=== PATIENT | male | born 1945 | race Caucasian/White ===

== ENCOUNTER 2016-10-27 05:26 | Day surgery (SDC) | payer MEDICARE, BC ==
--- NOTE | ~2016-10-27 | EGD ---
EGD REPORT [facility] [address] [address] NAME: MIKI BELTRAN : [birth year] [place] [facility] [place] [id number] AGE: 71 ADM/REG DATE : 10/27/16 MR#: [id number] REPORT SERV DATE: 10/27/16 DICTATED BY: DATE: REPORT STATUS : Draft TRANSCRIBED BY: [facility] DATE: 10/27/16 Endoscopy Center Patient Name: Miki Beltran Date of : 1945 Attending MD: CHRISTELLE ALVARADO MD Procedure Date No Time: 10/27/2016 Procedure: Upper GI endoscopy Indications: Dysphagia, Family history of gastric cancer, anastomotic stricture Referring MD: JUSTINA LA Medicines: Monitored Anesthesia Care Complications: No immediate complications. Procedure: Pre-Anesthesia Assessment: - ASA Grade Assessment: III - A patient with severe systemic disease. After obtaining informed consent, the endoscope was passed under direct vision. Throughout the procedure, the patient's blood pressure, pulse, and oxygen saturations were monitored continuously. The GIF H190 [id number] was introduced through the mouth, and advanced to the jejunum. The upper GI endoscopy was accomplished without difficulty. The patient tolerated the procedure well. Findings: A benign-appearing, intrinsic moderate stenosis measuring less than one cm (in length) x 7 mm (inner diameter) was found at the esophageal anastomosis and was traversed after dilation. A TTS dilator was passed through the scope. Dilation with a 10-11-12 mm balloon (to a maximum balloon size of 12 mm) dilator was performed. Estimated blood loss was minimal. The examined jejunum was normal. Impression: - Benign-appearing esophageal stricture. Dilated. - Normal examined jejunum. Recommendation: - Patient has a contact number available for emergencies. The signs and symptoms of potential delayed complications were discussed with the patient. Return to normal activities tomorrow. Written discharge instructions were provided to the patient. - Soft diet. - Discharge patient to home. - Continue present medications. - Repeat the upper endoscopy in 2 weeks for retreatment. EGD REPORT [facility] [address] [address] NAME: MIKI BELTRAN : [birth year] STATUS : REG [facility]#: [id number] AGE: 71 ADM/REG DATE : 10/27/16 MR#: [id number] REPORT SERV DATE: 10/27/16 DICTATED BY: DATE: REPORT STATUS : Draft TRANSCRIBED BY: [employer] DATE: 10/27/16 Plan injection with triamcinilone (Kenalog) at that time. Procedure Code(s): --- Professional --- 74480, Esophagogastroduodenoscopy, flexible, transoral; with transendoscopic balloon dilation of esophagus (less than 30 mm diameter) Diagnosis Code(s): --- Professional --- K22.2, Esophageal obstruction R13.10, Dysphagia, unspecified Z80.0, Family history of malignant neoplasm of digestive organs CPT copyright 2013 [employer]. All rights reserved. The codes documented in this report are preliminary and upon pre coder review may be revised to meet current compliance requirements. CHRISTELLE ALVARADO MD 10/27/2016 12:35 PM This report has been signed electronically. Number of Addenda: 0 Note Initiated On: 10/27/2016 6:57 AM Scope Withdrawal Time 0 hours 0 minutes 0 seconds [address] [facility] [address] [id number]
[~2016-10-27 05:26] MED LIST: *DENIES; ASAB PO; IRON325 MG PO; LIPITOR40 PO; ORAZINC110 MG PO; PROTONIX PO; ZOCOR40 PO; ZOCOR5 MG PO
[2016-12-24] MEDS ORDERED: LIPITOR20 PO (08:26)
== END 2016-10-27 23:59 | disposition home or self-care (01) ==
LOC: DMU 05:26
PROVIDERS: Internal Medicine Gastroenterology
PROC: 0D758ZZ Dilation of Esophagus, Via Natural or Artificial Opening Endoscopic (ICD-10-PCS; principal; 2016-10-27 07:00)
DX: K22.2 Esophageal obstruction (principal); B15.9 Hepatitis A without hepatic coma; H91.90 Unspecified hearing loss, unspecified ear; E78.00 Pure hypercholesterolemia, unspecified; N40.0 Benign prostatic hyperplasia without lower urinary tract symptoms; D64.9 Anemia, unspecified; Z79.82 Long term (current) use of aspirin; Z79.899 Other long term (current) drug therapy; Z98.890 Other specified postprocedural states; Z80.0 Family history of malignant neoplasm of digestive organs; Z90.49 Acquired absence of other specified parts of digestive tract; Z86.010 Personal history of colon polyps; Z98.41 Cataract extraction status, right eye; Z98.42 Cataract extraction status, left eye
CPT/HCPCS: A9270-GY; J2370

== ENCOUNTER 2016-11-10 06:13 | Day surgery (SDC) | payer MEDICARE, BC ==
--- NOTE | ~2016-11-10 | EGD ---
EGD REPORT [facility] [address] [address] NAME: MIKI BELTRAN : [birth year] STATUS : REG [facility]#: [id number] AGE: 71 ADM/REG DATE : 11/10/16 MR#: [id number] REPORT SERV DATE: 11/10/16 DICTATED BY: DATE: REPORT STATUS : Draft TRANSCRIBED BY: [facility] DATE: 11/10/16 Endoscopy Center Patient Name: Miki Beltran Date of : 1945 Attending MD: CHRISTELLE ALVARADO MD Procedure Date No Time: 11/10/2016 Procedure: Upper GI endoscopy Indications: Follow-up of post-surgical anastomotic stenosis, For therapy of post-surgical anastomotic stenosis, Management of operative complication: Dilation of anastomotic stricture Referring MD: JUSTINA LA Medicines: Monitored Anesthesia Care Complications: No immediate complications. Procedure: Pre-Anesthesia Assessment: - ASA Grade Assessment: II - A patient with mild systemic disease. After obtaining informed consent, the endoscope was passed under direct vision. Throughout the procedure, the patient's blood pressure, pulse, and oxygen saturations were monitored continuously. The GIF H190 [id number] was introduced through the mouth, and advanced to the jejunum. The upper GI endoscopy was accomplished without difficulty. The patient tolerated the procedure well. Findings: A benign-appearing, intrinsic moderate stenosis measuring less than one cm (in length) x 9 mm (inner diameter) was found at the esophageal anastomosis and was traversed after dilation. A TTS dilator was passed through the scope. Dilation with a 10-11-12 mm x 5.5 cm CRE balloon (to a maximum balloon size of 12 mm) dilator was performed under fluoroscopic guidance. No resistance was encountered at 10 mm. The balloon was inflated to 12 mm per psi and held for one minute. Two areas at 9 o'clock and (especially) 3 o'clock were notable for visible torn fibers but no evidence of perforation. Area was successfully injected with 1 mL of triamcinolone (40 mg/mL) for drug delivery with delivery in each of four quadrants (40mg/mL mixed 1:1 with sterile saline then 0.5 cc in each quadrant). The examined jejunum was normal. Impression: - Benign-appearing esophageal stricture. Dilated. Injected. - Normal examined jejunum. EGD REPORT [address] [place]. [address] NAME: MIKI BELTRAN : [birth year] STATUS : REG [facility] [place] PAT#: [id number] AGE: 71 ADM/REG DATE : 11/10/16 MR#: [id number] REPORT SERV DATE: 11/10/16 DICTATED BY: DATE: REPORT STATUS : Draft TRANSCRIBED BY: [employer] DATE: 11/10/16 Recommendation: - Patient has a contact number available for emergencies. The signs and symptoms of potential delayed complications were discussed with the patient. Return to normal activities tomorrow. Written discharge instructions were provided to the patient. - Regular diet. - Continue present medications. - Repeat the upper endoscopy in 3 weeks for retreatment. Procedure Code(s): --- Professional --- 74584, Esophagogastroduodenoscopy, flexible, transoral; with transendoscopic balloon dilation of esophagus (less than 30 mm diameter) 85269, 59, Esophagogastroduodenoscopy, flexible, transoral; with directed submucosal injection(s), any substance 98651, Intraluminal dilation of strictures and/or obstructions (eg, esophagus), radiological supervision and interpretation Diagnosis Code(s): --- Professional --- K22.2, Esophageal obstruction K91.89, Other postprocedural complications and disorders of digestive system CPT copyright 2013 [employer]. All rights reserved. The codes documented in this report are preliminary and upon jukebox coin collector review may be revised to meet current compliance requirements. CHRISTELLE ALVARADO MD 11/10/2016 8:22 AM This report has been signed electronically. Number of Addenda: 0 Note Initiated On: 11/10/2016 7:52 AM Scope Withdrawal Time 0 hours 0 minutes 0 seconds [address] [address]
[2016-12-24] MEDS ORDERED: LIPITOR20 PO (08:26)
== END 2016-11-10 23:59 | disposition home or self-care (01) ==
LOC: DMU 06:13
PROVIDERS: Internal Medicine Gastroenterology
PROC: 0D758ZZ Dilation of Esophagus, Via Natural or Artificial Opening Endoscopic (ICD-10-PCS; principal; 2016-11-10 10:30)
PROC: 3E0G8GC Introduction of Other Therapeutic Substance into Upper GI, Via Natural or Artificial Opening Endoscopic (ICD-10-PCS; 2016-11-10 10:30)
DX: K22.2 Esophageal obstruction (principal); I73.9 Peripheral vascular disease, unspecified; E78.00 Pure hypercholesterolemia, unspecified; N40.0 Benign prostatic hyperplasia without lower urinary tract symptoms; D64.9 Anemia, unspecified; Z90.3 Acquired absence of stomach [part of]; Z98.890 Other specified postprocedural states
CPT/HCPCS: 76000; C1725; J3301

== ENCOUNTER 2016-12-01 09:09 | Day surgery (SDC) | payer MEDICARE, BC ==
--- NOTE | ~2016-12-01 | EGD ---
EGD REPORT [facility] [address] [address] NAME: MIKI BELTRAN : [birth year] STATUS : REG [facility]#: [id number] AGE: 71 ADM/REG DATE : 12/01/16 MR#: [id number] REPORT SERV DATE: 12/01/16 DICTATED BY: DATE: REPORT STATUS : Draft TRANSCRIBED BY: [facility] DATE: 12/01/16 Endoscopy Center Patient Name: Miki Beltran Date of : 1945 Attending MD: CHRISTELLE ALVARADO MD Procedure Date No Time: 12/01/2016 Procedure: Upper GI endoscopy Indications: Dysphagia, Management of operative complication: Dilation of anastomotic stricture Referring MD: JUSTINA LA Medicines: Monitored Anesthesia Care Complications: No immediate complications. Procedure: Pre-Anesthesia Assessment: - ASA Grade Assessment: III - A patient with severe systemic disease. After obtaining informed consent, the endoscope was passed under direct vision. Throughout the procedure, the patient's blood pressure, pulse, and oxygen saturations were monitored continuously. The GIF H190 [id number] was introduced through the mouth, and advanced to the jejunum. The upper GI endoscopy was accomplished without difficulty. The patient tolerated the procedure well. Findings: A benign-appearing, intrinsic moderate stenosis measuring less than one cm (in length) x 9 mm (inner diameter) was found at the esophageal anastomosis and was traversed. A TTS dilator was passed through the scope. Dilation with a 12-13.5-15 mm x 5.5 cm CRE balloon (to a maximum balloon size of 13.5 mm) dilator was performed. No other significant abnormalities were identified in a careful examination of the esophagus. There is no endoscopic evidence of inflammation, ulcerations, mass or nodules in the entire esophagus. The examined jejunum was normal. Impression: - Benign-appearing esophageal stricture. Dilated. - Normal examined jejunum. Recommendation: - Patient has a contact number available for emergencies. The signs and symptoms of potential delayed complications were discussed with the patient. Return to normal activities tomorrow. Written discharge instructions were provided to the patient. - Return to previous diet. EGD REPORT [address] [address] NAME: MIKI BELTRAN : [birth year] STATUS : REG [facility] [place] PAT#: [id number] AGE: 71 ADM/REG DATE : 12/01/16 MR#: [id number] REPORT SERV DATE: 12/01/16 DICTATED BY: DATE: REPORT STATUS : Draft TRANSCRIBED BY: [employer] SERVICES DATE: 12/01/16 - Discharge patient to home. - Continue present medications. - Repeat the upper endoscopy in 4 weeks for retreatment. Procedure Code(s): --- Professional --- 65238, Esophagogastroduodenoscopy, flexible, transoral; with transendoscopic balloon dilation of esophagus (less than 30 mm diameter) Diagnosis Code(s): --- Professional --- K22.2, Esophageal obstruction R13.10, Dysphagia, unspecified K91.89, Other postprocedural complications and disorders of digestive system CPT copyright 2013 [employer]. All rights reserved. The codes documented in this report are preliminary and upon data analytics specialist review may be revised to meet current compliance requirements. CHRISTELLE ALVARADO MD 12/01/2016 10:50 AM This report has been signed electronically. Number of Addenda: 0 Note Initiated On: 12/01/2016 10:26 AM Scope Withdrawal Time 0 hours 0 minutes 0 seconds [address] [place] [address]
[2016-12-24] MEDS ORDERED: LIPITOR20 PO (08:26)
== END 2016-12-01 23:59 | disposition home or self-care (01) ==
LOC: DMU 09:09
PROVIDERS: Internal Medicine Gastroenterology
PROC: 0D758ZZ Dilation of Esophagus, Via Natural or Artificial Opening Endoscopic (ICD-10-PCS; principal; 2016-12-01 11:00)
DX: K22.2 Esophageal obstruction (principal); K91.89 Other postprocedural complications and disorders of digestive system; E78.5 Hyperlipidemia, unspecified; D64.9 Anemia, unspecified; E78.00 Pure hypercholesterolemia, unspecified; Z86.19 Personal history of other infectious and parasitic diseases; Z98.890 Other specified postprocedural states
CPT/HCPCS: C1726

== ENCOUNTER 2016-12-29 11:47 | Day surgery (SDC) | payer MEDICARE, BC ==
--- NOTE | ~2016-12-29 | EGD ---
EGD REPORT [facility] [address] [address] NAME: MIKI BELTRAN : [birth year] STATUS : REG [facility]#: [id number] AGE: 71 ADM/REG DATE : 12/29/16 MR#: [id number] REPORT SERV DATE: 12/29/16 DICTATED BY: DATE: REPORT STATUS : Draft TRANSCRIBED BY: [facility] DATE: 12/29/16 Endoscopy Center Patient Name: Miki Beltran Date of : 1945 Attending MD: CHRISTELLE ALVARADO MD Procedure Date No Time: 12/29/2016 Procedure: Upper GI endoscopy Indications: Post-surgical anastomotic stenosis Referring MD: JUSTINA LA Medicines: Monitored Anesthesia Care Complications: No immediate complications. Procedure: Pre-Anesthesia Assessment: - ASA Grade Assessment: II - A patient with mild systemic disease. After obtaining informed consent, the endoscope was passed under direct vision. Throughout the procedure, the patient's blood pressure, pulse, and oxygen saturations were monitored continuously. The GIF H190 [id number] was introduced through the mouth, and advanced to the jejunum. The upper GI endoscopy was accomplished without difficulty. The patient tolerated the procedure well. Findings: A benign-appearing, intrinsic moderate stenosis measuring less than one cm (in length) was found at the esophageal anastomosis and was traversed. A TTS dilator was passed through the scope. Dilation with a 12-13.5-15 mm balloon (to a maximum balloon size of 15 mm) dilator was performed. The examined jejunum was normal. Impression: - Benign-appearing esophageal stricture. Dilated. - Normal examined jejunum. Recommendation: - Patient has a contact number available for emergencies. The signs and symptoms of potential delayed complications were discussed with the patient. Return to normal activities tomorrow. Written discharge instructions were provided to the patient. - Return to previous diet. - Discharge patient to home. - Continue present medications. - Repeat the upper endoscopy in 4 weeks for retreatment. Procedure Code(s): --- Professional --- EGD REPORT [place] [id number] [facility] [place]. [address] NAME: MIKI BELTRAN : [birth year] STATUS : REG [facility]#: [id number] AGE: 71 ADM/REG DATE : 12/29/16 MR#: [id number] REPORT SERV DATE: 12/29/16 DICTATED BY: DATE: REPORT STATUS : Draft TRANSCRIBED BY: [employer] DATE: 12/29/16 65722, Esophagogastroduodenoscopy, flexible, transoral; with transendoscopic balloon dilation of esophagus (less than 30 mm diameter) Diagnosis Code(s): --- Professional --- K22.2, Esophageal obstruction K91.89, Other postprocedural complications and disorders of digestive system CPT copyright 2013 [employer]. All rights reserved. The codes documented in this report are preliminary and upon drum maker review may be revised to meet current compliance requirements. CHRISTELLE ALVARADO MD 12/29/2016 3:55 PM This report has been signed electronically. Number of Addenda: 0 Note Initiated On: 12/29/2016 3:24 PM Scope Withdrawal Time 0 hours 0 minutes 0 seconds
[~2016-12-29 11:47] MED LIST changes: +LIPITOR20 PO
== END 2016-12-29 23:59 | disposition home or self-care (01) ==
LOC: DMU 11:47
PROVIDERS: Internal Medicine Gastroenterology
PROC: 0D758ZZ Dilation of Esophagus, Via Natural or Artificial Opening Endoscopic (ICD-10-PCS; principal; 2016-12-29 16:00)
DX: K91.89 Other postprocedural complications and disorders of digestive system (principal); Z79.82 Long term (current) use of aspirin; Z79.899 Other long term (current) drug therapy; Z98.41 Cataract extraction status, right eye; Z98.42 Cataract extraction status, left eye; Z98.890 Other specified postprocedural states
CPT/HCPCS: C1726

== ENCOUNTER 2017-01-26 05:48 | Day surgery (SDC) | payer MEDICARE, BC ==
--- NOTE | ~2017-01-26 | EGD ---
EGD REPORT [facility] [address] [address] NAME: MIKI BELTRAN : [birth year] STATUS : REG [facility]#: [id number] AGE: 71 ADM/REG DATE : 01/26/17 MR#: [id number] REPORT SERV DATE: 01/26/17 DICTATED BY: DATE: REPORT STATUS : Draft TRANSCRIBED BY: [facility] DATE: 01/26/17 Endoscopy Center Patient Name: Miki Beltran Date of : 1945 Attending MD: CHRISTELLE ALVARADO MD Procedure Date No Time: 01/26/2017 Procedure: Upper GI endoscopy Indications: Post-surgical anastomotic stenosis, For therapy of post-surgical anastomotic stenosis Referring MD: JUSTINA LA Medicines: Monitored Anesthesia Care Complications: No immediate complications. Procedure: Pre-Anesthesia Assessment: - ASA Grade Assessment: II - A patient with mild systemic disease. After obtaining informed consent, the endoscope was passed under direct vision. Throughout the procedure, the patient's blood pressure, pulse, and oxygen saturations were monitored continuously. The GIF H190 [id number] was introduced through the mouth, and advanced to the jejunum. The upper GI endoscopy was accomplished without difficulty. The patient tolerated the procedure well. Findings: A benign-appearing, intrinsic moderate stenosis measuring less than one cm (in length) was found at the esophageal anastomosis and was traversed. A TTS dilator was passed through the scope. Dilation with a 10-11-12 mm x 5.5 cm CRE balloon (to a maximum balloon size of 12 mm) and a 12-13.5-15 mm x 5.5 cm CRE balloon (to a maximum balloon size of 13.5 mm) dilator was performed. Area was successfully injected with 2 mL of triamcinolone (40 mg/mL) for drug delivery. Patchy candidiasis was found in the upper third of the esophagus. Biopsies were taken with a cold forceps for histology. The examined jejunum was normal. Impression: - Benign-appearing esophageal stricture. Dilated. Injected. - Monilial esophagitis. Biopsied. - Normal examined jejunum. Recommendation: - Patient has a contact number available for emergencies. The signs and symptoms of potential delayed complications were discussed with the patient. Return to normal activities tomorrow. Written discharge EGD REPORT [address] [place]. [address] NAME: MIKI BELTRAN : [birth year] STATUS : REG [facility] [place] PAT#: [id number] AGE: 71 ADM/REG DATE : 01/26/17 MR#: [id number] REPORT SERV DATE: 01/26/17 DICTATED BY: DATE: REPORT STATUS : Draft TRANSCRIBED BY: [employer] SERVICES DATE: 01/26/17 instructions were provided to the patient. - Soft diet. - Discharge patient to home. - Continue present medications. - Diflucan (fluconazole) 100 mg PO daily for 2 weeks. - Await pathology results. - Repeat the upper endoscopy in 4 weeks for retreatment. Procedure Code(s): --- Professional --- 83186, Esophagogastroduodenoscopy, flexible, transoral; with transendoscopic balloon dilation of esophagus (less than 30 mm diameter) 19807, 59, Esophagogastroduodenoscopy, flexible, transoral; with directed submucosal injection(s), any substance 53892, Esophagogastroduodenoscopy, flexible, transoral; with biopsy, single or multiple Diagnosis Code(s): --- Professional --- K22.2, Esophageal obstruction B37.81, Candidal esophagitis K91.89, Other postprocedural complications and disorders of digestive system CPT copyright 2013 [employer]. All rights reserved. The codes documented in this report are preliminary and upon research worker kitchen review may be revised to meet current compliance requirements. CHRISTELLE ALVARADO MD 01/26/2017 8:00 AM This report has been signed electronically. Number of Addenda: 0 Note Initiated On: 01/26/2017 6:47 AM Scope Withdrawal Time 0 hours 0 minutes 0 seconds
--- NOTE | ~2017-01-26 | EGD ---
EGD REPORT [facility] [address] [address] NAME: MIKI BELTRAN : 41 STATUS : [facility]#: [id number] AGE: 71 ADM/REG DATE : 01/26/17 MR#: [id number] REPORT SERV DATE: 02/08/17 DICTATED BY: DATE: REPORT STATUS : Draft [facility]ANSCRIBED BY: [facility] DATE: 02/08/17 Endoscopy Center Patient Name: Miki Beltran Date of : 1945 Attending MD: CHRISTELLE ALVARADO MD Procedure Date No Time: 01/26/2017 Procedure: Upper GI endoscopy Indications: Post-surgical anastomotic stenosis, For therapy of post-surgical anastomotic stenosis Referring MD: JUSTINA LA Medicines: Monitored Anesthesia Care Complications: No immediate complications. Procedure: Pre-Anesthesia Assessment: - ASA Grade Assessment: II - A patient with mild systemic disease. After obtaining informed consent, the endoscope was passed under direct vision. Throughout the procedure, the patient's blood pressure, pulse, and oxygen saturations were monitored continuously. The GIF H190 [id number] was introduced through the mouth, and advanced to the jejunum. The upper GI endoscopy was accomplished without difficulty. The patient tolerated the procedure well. Findings: A benign-appearing, intrinsic moderate stenosis measuring less than one cm (in length) was found at the esophageal anastomosis and was traversed. A TTS dilator was passed through the scope. Dilation with a 10-11-12 mm x 5.5 cm CRE balloon (to a maximum balloon size of 12 mm) and a 12-13.5-15 mm x 5.5 cm CRE balloon (to a maximum balloon size of 13.5 mm) dilator was performed. Area was successfully injected with 2 mL of triamcinolone (40 mg/mL) for drug delivery. Patchy candidiasis was found in the upper third of the esophagus. Biopsies were taken with a cold forceps for histology. The examined jejunum was normal. Impression: - Benign-appearing esophageal stricture. Dilated. Injected. - Monilial esophagitis. Biopsied. - Normal examined jejunum. Recommendation: - Patient has a contact number available for emergencies. The signs and symptoms of potential delayed complications were discussed with the patient. Return to normal activities tomorrow. Written discharge EGD REPORT [address] [place]. [address] NAME: MIKI BELTRAN : [birth year] STATUS : [facility] PAT#: [id number] AGE: 71 ADM/REG DATE : 01/26/17 MR#: [id number] REPORT SERV DATE: 02/08/17 DICTATED BY: DATE: REPORT STATUS : Draft TRANSCRIBED BY: [employer] SERVICES DATE: 02/08/17 instructions were provided to the patient. - Soft diet. - Discharge patient to home. - Continue present medications. - Diflucan (fluconazole) 100 mg PO daily for 2 weeks. - Await pathology results. - Repeat the upper endoscopy in 4 weeks for retreatment. Procedure Code(s): --- Professional --- 86615, Esophagogastroduodenoscopy, flexible, transoral; with transendoscopic balloon dilation of esophagus (less than 30 mm diameter) 20982, 59, Esophagogastroduodenoscopy, flexible, transoral; with directed submucosal injection(s), any substance 90520, Esophagogastroduodenoscopy, flexible, transoral; with biopsy, single or multiple Diagnosis Code(s): --- Professional --- K22.2, Esophageal obstruction B37.81, Candidal esophagitis K91.89, Other postprocedural complications and disorders of digestive system CPT copyright 2013 [employer]. All rights reserved. The codes documented in this report are preliminary and upon scallop dredger review may be revised to meet current compliance requirements. CHRISTELLE ALVARADO MD 01/26/2017 8:00 AM This report has been signed electronically. Number of Addenda: 0 Note Initiated On: 01/26/2017 6:47 AM Scope Withdrawal Time 0 hours 0 minutes 0 seconds
== END 2017-01-26 23:59 | disposition home or self-care (01) ==
LOC: DMU 05:48
PROVIDERS: Internal Medicine Gastroenterology
PROC: 3E0G8GC Introduction of Other Therapeutic Substance into Upper GI, Via Natural or Artificial Opening Endoscopic (ICD-10-PCS; principal; 2017-01-26 07:00)
PROC: 0D748ZZ Dilation of Esophagogastric Junction, Via Natural or Artificial Opening Endoscopic (ICD-10-PCS; 2017-01-26 07:00)
PROC: 0DB18ZX Excision of Upper Esophagus, Via Natural or Artificial Opening Endoscopic, Diagnostic (ICD-10-PCS; 2017-01-26 07:00)
DX: K22.2 Esophageal obstruction (principal); K91.89 Other postprocedural complications and disorders of digestive system; Z85.028 Personal history of other malignant neoplasm of stomach
CPT/HCPCS: 88305; C1726; J3301

== ENCOUNTER 2017-05-11 05:49 | Day surgery (SDC) | payer MEDICARE, BC ==
[~2017-05-11] VITALS: Ht 172.7 cm; Wt 54.0 kg
--- NOTE | ~2017-05-11 | EGD ---
EGD REPORT [facility] [address] [place] [address] NAME: MIKI BELTRAN : [birth year] [place]US : [place] [facility] [place]#: [id number] AGE: 71 ADM/REG DATE : 05/11/17 MR#: [id number] REPORT SERV DATE: 05/13/17 DICTATED BY: DATE: REPORT STATUS : Draft TRANSCRIBED BY: [facility] DATE: 05/13/17 Endoscopy Center Patient Name: Miki Beltran Date of : 1945 Attending MD: CHRISTELLE ALVARADO MD Procedure Date No Time: 05/11/2017 Procedure: Upper GI endoscopy Indications: For therapy of post-surgical anastomotic stenosis Referring MD: JUSTINA LA Medicines: Monitored Anesthesia Care Complications: No immediate complications. Procedure: Pre-Anesthesia Assessment: - ASA Grade Assessment: III - A patient with severe systemic disease. After obtaining informed consent, the endoscope was passed under direct vision. Throughout the procedure, the patient's blood pressure, pulse, and oxygen saturations were monitored continuously. The GIF [id number] was introduced through the mouth, and advanced to the jejunum. The upper GI endoscopy was accomplished without difficulty. The patient tolerated the procedure well. Findings: A benign-appearing, intrinsic moderate stenosis measuring less than one cm (in length) was found at the esophageal anastomosis and was traversed. A TTS dilator was passed through the scope. Dilation with a 12-13.5-15 mm balloon (to a maximum balloon size of 15 mm) dilator was performed. Estimated blood loss was minimal. No other significant abnormalities were identified in a careful examination of the esophagus. The examined jejunum was normal. Impression: - Benign-appearing esophageal stricture. Dilated. - Normal examined jejunum. Recommendation: - Patient has a contact number available for emergencies. The signs and symptoms of potential delayed complications were discussed with the patient. Return to normal activities tomorrow. Written discharge instructions were provided to the patient. - Return to previous diet. - Discharge patient to home. - Continue present medications. - Repeat the upper endoscopy in 6 weeks for retreatment. EGD REPORT [facility] [address] [place]. [address] NAME: MIKI BELTRAN : [birth year] STATUS : [place] [facility] [place] PAT#: [id number] AGE: 71 ADM/REG DATE : 05/11/17 MR#: [id number] REPORT SERV DATE: 05/13/17 DICTATED BY: DATE: REPORT STATUS : Draft TRANSCRIBED BY: [employer] DATE: 05/13/17 Procedure Code(s): --- Professional --- 23424, Esophagogastroduodenoscopy, flexible, transoral; with transendoscopic balloon dilation of esophagus (less than 30 mm diameter) Diagnosis Code(s): --- Professional --- K22.2, Esophageal obstruction K91.89, Other postprocedural complications and disorders of digestive system CPT copyright 2013 [employer]. All rights reserved. The codes documented in this report are preliminary and upon electronic technician review may be revised to meet current compliance requirements. CHRISTELLE ALVARADO MD 05/11/2017 7:33 AM This report has been signed electronically. Number of Addenda: 0 Note Initiated On: 05/11/2017 6:51 AM Scope Withdrawal Time 0 hours 0 minutes 0 seconds [address] [facility] [place] [address]
== END 2017-05-11 23:59 | disposition home health service (06) ==
LOC: DMU 05:49
PROVIDERS: Internal Medicine Gastroenterology
PROC: 0D758ZZ Dilation of Esophagus, Via Natural or Artificial Opening Endoscopic (ICD-10-PCS; principal; 2017-05-11 07:00)
DX: K22.2 Esophageal obstruction (principal); K91.89 Other postprocedural complications and disorders of digestive system; D64.9 Anemia, unspecified; E78.5 Hyperlipidemia, unspecified; Z79.899 Other long term (current) drug therapy; Z87.891 Personal history of nicotine dependence; Z98.41 Cataract extraction status, right eye; Z98.42 Cataract extraction status, left eye; Z96.1 Presence of intraocular lens
CPT/HCPCS: C1726